=== PATIENT | male | born 1970 | race Two or more races ===

== ENCOUNTER 2018-02-26 15:14 | Emergency (ER) | payer MEDICAID ==
[~2018-02-26] VITALS: Ht 172.7 cm; Wt 88.5 kg
[~2018-02-26 15:14] MED LIST: INDOMETHACIN75 MG ORAL; NAPROSYN500 M1 ORAL; TRAMADOL HCL50 MG ORAL
[2018-02-26 15:28] VITALS: BP 126/68
--- NOTE | 2018-02-26 15:36 | Emergency Room Report ---
History of Present Illness General Chief Complaint: Pain Source: Patient (Matias iKng) Present Illness HPI 47-year-old male patient presents ER complaining of right foot pain since last night. Patient reports he began feeling pain in his heel last evening and it got worse this morning. Patient reports pain with ambulation. Patient reports she was able to drive to ER on his own. reports that he walks and stands a lot at work. Denies pain in toe. Denies hx of gout. Patient denies history of injury or trauma to the area. Patient denies loss of sensation. Patient reports he took Aleve for pain. Patient denies other acute symptoms. Denies fever, chest pain, shortness breath. denies stepping on a nail. (Matias King) Allergies: Coded Allergies: LATEX (Verified Allergy, Intermediate, Rash, 11/20/14) Uncoded Allergies: plastic (Allergy, Intermediate, Rash, 11/20/14) Patient History Past Medical History: see triage record Reviewed Nursing Documentation: PMH: Agreed; PSxH: Agreed (Matias King) Nursing Documentation-PMH Past Medical History: No Stated History (Matias King) Review of Systems All Other Systems: negative except mentioned in HPI (Matias King) Physical Exam Vital Signs Date Time Temp Pulse Resp B/P (MAP) Pulse Ox O2 Delivery O2 Flow Rate FiO2 02/26/18 15:21 98.0 84 18 126/68 96 Room Air 98.1 Sp02 EP Interpretation: reviewed, normal General Appearance: well appearing, no apparent distress, alert, GCS 15, non- toxic Head: normocephalic, atraumatic Neck: full range of motion Respiratory: lungs clear, normal breath sounds, no rhonchi, no respiratory distress, no accessory muscle use, no wheezing, speaking full sentences Cardiovascular #1: regular rate, rhythm, no edema Cardiovascular #2: 2+ dorsalis pedis (R), 2+ dorsalis pedis (L) Musculoskeletal: back normal, digits/nails normal, gait/station normal, normal range of motion, no calf tenderness, swelling - mild swelling of right lateral ankle compared to left ankle, other - Neurovascularly intact, cap refill less than 2 seconds, able to wiggle toes, Shankar test negative for Achilles rupture , no podagra, no erythema, tender - base of fifth metatarsal of right foot, heel , no puncture wound Neurologic: alert, oriented x3, responsive, motor strength/tone normal, sensory intact Psychiatric: mood/affect normal Skin: no rash (Matias King) Medical Decision Making PA Attestation Dr. Bonilla is my supervising Physician whom patient management has been discussed with. (Matias King) Diagnostic Impression: Primary Impression: Heel pain ER Course Pt. presents to the ED c/o and heel pain. Ddx considered but are not limited to fracture, sprain, strain, contusion, dislocation. No erythema, no warmth to touch, no fever, nontoxic appearing, low suspicion for septic joint. no erythema, no podagra, no tophi, low suspicion for gout at this time. Vital signs: are WNL, pt. is afebrile Ordered X-ray and pain medication. ER COURSE Provided with pain medication. An X-ray of the right foot was ordered, results show no acute fracture, per the preliminary reading. An X-ray of the right ankle was ordered, results show no acute fracture, heel spur, per the preliminary reading. Reports pain symptoms improved. PETR wrap and postop shoe was applied to the right foot and ankle was checked afterwards by me showing good alignment and support with distal neurovascular functioning intact. Informed patient's symptoms likely related to heel spur or plantar fasciitis. Informed patient of underlying etiology of symptoms. Follow-up with primary care provider. informed patient to get orthotics for shoes. Perform stretches and range of motion exercises. Crutches provided. Patient instructed on RICE method: rest, ice, compression, elevation. Patient instructed to WBAT. Followup with primary care provider for further treatment and referral as needed. Discuss evaluation for possible gout. Discuss referral to ortho/pain management/PT as needed. Discuss further imaging with MRI/CT as needed. DISCHARGE: -Rx provided for Ibuprofen for pain symptoms. At this time pt. is stable for d/c to home. Patient is resting comfortably, in no acute distress, nontoxic appearing, talking without difficulty. Will provide printed patient care instructions, and any necessary prescriptions. Patient instructed to follow with primary care provider in 3 - 5 days and to request further orthopedic follow-up. Care plan and follow up instructions have been discussed with the patient prior to discharge. Take medications as directed. Patient questions asked and answered. Patient reports understanding and agreement to treatment plan. ER precautions given, patient instructed to return to ER immediately for any new or worsening of symptoms. - Please note that this Emergency Department Report was dictated using [employer] technology software, occasionally this can lead to erroneous entry secondary to interpretation by the dictation equipment. (Matias King) Other X-Ray Diagnostic Results Other X-Ray Diagnostic Results #1: X-Ray ordered: right foot # of Views/Limited Vs Complete: 3 View Indication: Pain EP Interpretation: Yes PA Xray: Interpretation reviewed, by supervising MD, and agrees with findings. Interpretation: no dislocation, no soft tissue swelling, no fractures Impression: No acute disease PA Scribe Text Tito King PA-C Other X-Ray Diagnostic Results #2: X-Ray ordered: right ankle # of Views/Limited Vs Complete: 3 View Indication: Pain EP Interpretation: Yes PA Xray: Interpretation reviewed, by supervising MD, and agrees with findings. Interpretation: no dislocation, no soft tissue swelling, no fractures, other - heel spur Impression: No acute disease PA Scribe Text Tito King PA-C (Matias King) Other X-Ray Diagnostic Results #1: Electronically Signed by: Scribe documentation reviewed by me and is accurate, James Bonilla MD. Other X-Ray Diagnostic Results #2: Electronically Signed by: Scribe documentation reviewed by me and is accurate, James Bonilla MD. (James Bonilla M.D.) Last Vital Signs Date Time Temp Pulse Resp B/P (MAP) Pulse Ox O2 Delivery O2 Flow Rate FiO2 02/26/18 15:28 98.1 64 18 126/68 96 Room Air 98.1 (Matias King) Disposition: HOME, SELF-CARE Condition: Stable Scripts Ibuprofen* (MOTRIN*) 600 Mg Tablet 600 MG ORAL Q8H PRN for For Pain, #30 TAB 0 Refills Prov: Matias King 02/26/18 Patient Instructions: Achilles Tendinitis With Rehab-SportsMed, Plantar Fasciitis Additional Instructions: Patient instructed to follow up with primary care provider and discuss further referral to orthopedics and PT as needed. Patient instructed on RICE method: rest, ice, compression, elevation. Patient instructed to WBAT. Get orthotics. Perform stretching and ROM exercises. Take medications as directed. Patient questions asked and answered. ER precautions given, patient instructed to return to ER immediately for any new or worsening of symptoms. Matias King February 26, 2018 15:36 James Bonilla M.D. February 27, 2018 02:42
[2018-02-26] MEDS ORDERED: IBUPROFEN600 MG ORAL (16:47)
[2018-02-26 17:07] VITALS: BP 126/68
--- NOTE | 2018-02-27 09:12 | Diagnostic Imaging Report ---
Indication: Pain Technique: Right foot, 3 views Comparison: None. Findings: The osseous structures are intact. There is no fracture or destruction. Is some narrowing of the first metatarsophalangeal joint. The remaining joints are normal.. Is a plantar calcaneal enthesophyte. Soft tissues are otherwise unremarkable. Impression: Plantar calcaneal enthesophyte. Degenerative change of the first metatarsophalangeal joint. Otherwise negative.
--- NOTE | 2018-02-27 09:13 | Diagnostic Imaging Report ---
Indication: Reason For Exam: PAIN Technique: XRAY Ankle Compl Min 3v R Comparison: None. Findings: The osseous structures are intact. There is no fracture or destruction. The visualized joints are normal. There is a plantar calcaneal enthesophyte. Is minimal soft tissue swelling. Impression: Plantar enthesophyte. Minimal soft tissue swelling. Otherwise negative.
== END 2018-02-26 17:10 | disposition home or self-care (01) ==
LOC: EMR 15:53
DX: M79.671 Pain in right foot (principal); M77.8 Other enthesopathies, not elsewhere classified; Z91.040 Latex allergy status
CPT/HCPCS: 99284

== ENCOUNTER 2019-12-08 21:54 | Emergency (ER) | payer MEDICAID ==
[~2019-12-08] VITALS: Ht 172.7 cm; Wt 90.7 kg
[~2019-12-08 21:54] MED LIST changes: +COLCRYS0.6 M1 PO; +IBUPROFEN600 MG ORAL; +PREDNISONE20 MG ORAL
--- NOTE | 2019-12-08 22:10 | NUR ---
ED Nurse Note: PT WALKED IN C/O LT FOOT PAIN 05/12 SINCE 12/06. PT STATES HX GOUT AND STATED IT MAY BE A FLARE UP. PT WAS DX GOUT BUT DID NOT TAKE MEDS.
[2019-12-08] MEDS ORDERED: TRAMADOL HCL50 MG ORAL (22:48)
[2019-12-08] MEDS ORDERED: COLCHICINE0.6 M1 PO (22:48)
[2019-12-08 22:55] VITALS: BP 124/76
--- NOTE | 2019-12-08 23:25 | NUR ---
ER DISCHARGE NOTE: Patient is cleared to be discharged per ERMD, pt is aox4, on room air, with stable vital signs. pt was given dc instructions, pt was able to verbalize understanding, pt id band removed without complications. pt is able to ambulate with steady gait. pt took all belongings.
--- NOTE | 2019-12-09 06:43 | Emergency Room Report ---
History of Present Illness General Chief Complaint: Lower Extremity Injury Source: Patient Present Illness HPI Patient 49-year-old male who presents after increased left-sided great toe pain. Prior history of gout. Onset of symptoms yesterday. He had taken Naprosyn without any improvement. Noticed increased pain and swelling. Previous toenail resection for ingrown toenail. Previous laboratory testing showed uric acid elevation. Had previously been taking colchicine. Denies any fever. Denies any trauma. Allergies: Coded Allergies: LATEX (Verified Allergy, Intermediate, Rash, 11/20/14) Uncoded Allergies: plastic (Allergy, Intermediate, Rash, 11/20/14) Patient History Past Medical History: see triage record Reviewed Nursing Documentation: PMH: Agreed; PSxH: Agreed Physical Exam Vital Signs Date Time Temp Pulse Resp B/P (MAP) Pulse Ox O2 Delivery O2 Flow Rate FiO2 12/08/19 22:05 97.3 70 16 124/76 (92) 96 Room Air General Appearance: well appearing, no apparent distress, alert, GCS 15 Head: normocephalic, atraumatic ENT: hearing grossly normal, normal voice Neck: full range of motion, supple Respiratory: no respiratory distress, speaking full sentences Musculoskeletal: no calf tenderness Neurologic: alert, dinkey engineer III-XII nml as tested, oriented x3, normal gait Psychiatric: mood/affect normal Skin: no rash, other - Slight erythema to the left great toe distal phalanx. No evident fluctuance or abscess. Postsurgical changes to the nail Medical Decision Making Diagnostic Impression: Primary Impression: Gouty arthritis ER Course Patient presented for a left great toe pain. Differential diagnosis includes not limited to abscess, ingrown toenail, gout, contusion among others. Patient has a benign exam and does not appear to require any imaging or laboratory testing at this time. Patient had previous history of gout Patient's location of pain appears to be consistent with a gouty arthritis. Does not appear to have any ingrown toenail at this time. Patient given prescriptions for medications for symptoms. The patient is advised to follow up with primary care doctor in 1-2 days. Patient is advised to return if any worsening condition or if any changes in status that are concerning. This report is dictated with [employer] liquid compounder software which may occasionally lead to discrepancies related to use of this software. Last Vital Signs Date Time Temp Pulse Resp B/P (MAP) Pulse Ox O2 Delivery O2 Flow Rate FiO2 3/7/20 22:55 97.5 68 16 133/75 96 Room Air Status: improved Disposition: HOME, SELF-CARE Condition: Stable Scripts Tramadol Hcl* (ULTRAM*) 50 Mg Tablet 50 MG ORAL Q6H PRN for For Pain, #12 TAB 0 Refills Prov: Brian Jones MD 12/08/19 Colchicine (Colchicine) 0.6 Mg Capsule 0.6 MG PO TWICE A DAY, #20 CAP Prov: Brian Jones MD 12/08/19 Referrals: NON PHYSICIAN (PCP) Patient Instructions: Arthritis, [id number] Additional Instructions: Follow up with your doctor for recheck in 2-3 days. Return if worse, any fever or other concerns. Brian Jones MD Dec 09, 2019 06:43
== END 2019-12-08 22:55 | disposition home or self-care (01) ==
LOC: EMR 22:45
DX: M10.9 Gout, unspecified (principal); Z91.040 Latex allergy status
CPT/HCPCS: 99282